=== PATIENT | female | born 1960 | race Caucasian/White ===

== ENCOUNTER 2020-02-28 06:04 | Observation (INO) | payer MEDICARE ==
[2020-02-28] VITALS (10 sets, daily range): BP systolic 105–139; BP diastolic 40–70; Ht 162.6 cm; Wt 97.5 kg
[~2020-02-28] VITALS: Ht 162.6 cm; Wt 97.5 kg
[~2020-02-28 06:04] MED LIST: ALBUTEROL SULF8.5 GM; BASAGLAR K100 UNIT/1; BUPROPION HCL200 M1 PO; GLIPIZIDE10 MG PO; JANUVIA100 MG PO; MOBIC7.5 MG PO; OXYBUTYNIN CHLOR5 MG; PRAVACHOL40 MG PO; TRELEGY ELLIPT1 EACH; VASOTEC5 MG; VITAMIN B-12100 MCG PO; VITAMIN D3; ZOLOFT100 MG PO
[2020-02-28 06:26] LABS: HEMATOCRIT 44.8 % (36.0-48.0); HEMOGLOBIN 15.4 g/dL (12-16); MCH 30.3 pg (26.0-34.0); MCHC 34.4 g/dL (31.0-37.0); MEAN PLATELET VOLUME 9.9 fL (7.4-10.4); RBC 5.09 10x6/uL (4.00-5.40); RDW 13.8 % (11.5-14.5); WBC 11.7 10x3/uL (4.8-10.8)
[2020-02-28 06:41] LABS: ANION GAP 8.2 mmol/L (8-16); CALCIUM 8.9 mg/dL (8.5-10.1); CARBON DIOXIDE 32.7 mmol/L (21.0-32.0); CREATININE - SERUM 0.9 mg/dL (0.6-1.3); POTASSIUM - SERUM 3.9 mmol/L (3.5-5.1)
--- NOTE | 2020-02-28 07:50 | NUR ---
DR WEST NOTIFIED AND REVIEWED PT'S BEHAVIOR AND ASSESSMENT. PT IS A LOW RISK. RESOURCES GIVEN AND SHE VERBALIZES UNDERSTANDING.
--- NOTE | 2020-02-28 12:25 | NUR ---
PATIENT ADMITTED TO ROOM 2212. ADMISSION COMPLETE. AT BEDSIDE. O2 TITRATED TO 5L. PER DR ROBERTS, TITRATE O2 NEEDED TO KEEP ABOVE 92%.
--- NOTE | 2020-02-28 12:49 | NUR ---
O2 SAT 94% ON 5L. DECREASED O2 TO 4L. O2 SAT 93% ON 4L.
--- NOTE | 2020-02-28 13:22 | NUR ---
PATIENT USING INCENTIVE SPIROMETER.
--- NOTE | 2020-02-28 14:12 | NUR ---
O2 DECREASED TO 3L. PATIENT SAT 92% ON 3L.
--- NOTE | 2020-02-28 16:13 | NUR ---
HR 120, NOTIFIED DR HART, NEW ORDER RECEIVED NOTIFIED AC
--- NOTE | 2020-02-28 16:34 | NUR ---
STAT EKG PERFORMED.
--- NOTE | 2020-02-28 16:39 | NUR ---
EKG, [address] HART, NEW ORDER RECEIVED TO NOT GIVE NS BOLUS BUT TO START NS TO KVO.
--- NOTE | 2020-02-28 16:46 | NUR ---
PATIENT WEANED OFF O2. SAT 92% ON ROOM AIR.
--- NOTE | 2020-02-28 18:24 | NUR ---
DR ROBERTS PAGED TO NOTIFY OF DDIMER 0.86. WAITING CALL BACK.
--- NOTE | 2020-02-28 18:27 | NUR ---
DR ROBERTS NOTIFIED THAT PATIENT NO LONGER REQUIRING O2 AND DDIMER 0.82. REQUESTING ABGS. ABGS STILL NOT DONE FROM 1400. RT CALLED TO COME DO ABGS AND STATES WILL COME.
--- NOTE | 2020-02-28 18:45 | NUR ---
DR ROBERTS CALLED AND NOTIFIED OF ABGS. NO NEW ORDERS.
[2020-02-28 18:52] LABS: CKMB 2.8 U/L (0.0-3.6); CREATINE KINASE 83 UL (21-215); TROPONIN-I 0.056 ng/mL (0.000-0.060)
[2020-02-28 23:59] LABS: CKMB 3.2 U/L (0.0-3.6); CREATINE KINASE 95 UL (21-215); TROPONIN-I 0.036 ng/mL (0.000-0.060)
[2020-02-29] VITALS: BP 127/52
--- NOTE | 2020-02-29 00:46 | NUR ---
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 spir while awake. voices understanding.drsg intact to rectum. will continue to monitor for any chges, and follow current plan of care.
[2020-02-29 04:00] VITALS: BP 102/49
[2020-02-29 05:57] LABS: CKMB 3.4 U/L (0.0-3.6); CREATINE KINASE 93 UL (21-215); TROPONIN-I 0.026 ng/mL (0.000-0.060)
--- NOTE | 2020-02-29 06:00 | NUR ---
I have reviewed this patient and I concur with the Shift Assessment completed by the Licensed Practical Nurse today this shift.
--- NOTE | 2020-02-29 08:06 | NUR ---
ALERT AND ORIENTED. LUNGS CLEAR BILATERALLY. HEART SOUNDS S1 AND S2 HEARD IN ALL [place]. BOWEL SOUNDS ACTIVE X 4. SKIN INTACT WIHTOUT REDNESS. IV TO RIGHT HAND INFILTRATED. REMOVED WITH TIP INTACT. STATES DOES NOT WANT IV UNLESS NOT GOING HOME TODAY. WILL TALK TO MD ON CASE. DENIES FURTHER NEEDS. BED LOW. CALL GOMEZ AND PERSONAL ITEMS IN REACH. WILL CONTINUE TO MONITOR.
--- NOTE | 2020-02-29 08:19 | NUR ---
DR RENEE MADE AWARE THAT PATIENT NEEDS HOME MEDS RESTARTED AND NEEDS INSULIN.
[2020-02-29 09:28] VITALS: BP 134/34
--- NOTE | 2020-02-29 11:28 | NUR ---
PATIENT SAT 96% ON ROOM AIR. PATIENT UP WALKING UNIT NOW.
[2020-02-29 13:43] VITALS: BP 127/43
--- NOTE | 2020-02-29 14:47 | NUR ---
DR HART PAGED TO SEE IF PATIENT ABLE TO DC TODAY.
--- NOTE | 2020-02-29 16:19 | NUR ---
DISCHARGE EDUCATION PROVIDED BOTH WRITTEN AND VERBAL. VERBALIZED UNDERSTANDING. DENIES FURTHER QUESTIONS. PATIENT DC HOME WITH DAUGHTER WITH ALL BELONGINGS.
== END 2020-02-29 16:20 | disposition home or self-care (01) ==
LOC: D.MS 06:04 → D.OPS 06:04 → D.PAN 08:00 → D.OPS 08:00 → D.MS 11:44 → OBSVTIME 11:44 → D.MS 11:54 → D.OPS 02-29 16:20 → D.MS 02-29 16:20
PROVIDERS: Anesthesiology; ADMIT Surgery; ATTEND Surgery
DX: A63.0 Anogenital (venereal) warts (principal); F17.200 Nicotine dependence, unspecified, uncomplicated; E11.9 Type 2 diabetes mellitus without complications; Z79.84 Long term (current) use of oral hypoglycemic drugs; I10 Essential (primary) hypertension; J44.9 Chronic obstructive pulmonary disease, unspecified; E66.9 Obesity, unspecified; Z68.36 Body mass index [BMI] 36.0-36.9, adult; T88.59XA Other complications of anesthesia, initial encounter; J70.4 Drug-induced interstitial lung disorders, unspecified; T41.205A Adverse effect of unspecified general anesthetics, initial encounter; Y83.9 Surgical procedure, unspecified as the cause of abnormal reaction of the patient, or of later complication, without mention of misadventure at the time of the procedure; J95.821 Acute postprocedural respiratory failure

== ENCOUNTER → 2020-07-02 10:44 | Outpatient (CLI) | payer MEDICARE ==
[2020-02-28 13:25] VITALS: BMI 36.9
== END | disposition home or self-care (01) ==
LOC: D.LAB 10:44
PROVIDERS: ATTEND Internal Medicine Pulmonary Disease
DX: Z11.59 Encounter for screening for other viral diseases (principal)

== ENCOUNTER → 2020-07-05 07:44 | Outpatient (CLI) | payer MEDICARE ==
[2020-02-28 13:25] VITALS: BMI 36.9
== END | disposition home or self-care (01) ==
LOC: D.RT 07:44
PROVIDERS: ATTEND Internal Medicine Pulmonary Disease
DX: J44.9 Chronic obstructive pulmonary disease, unspecified (principal)